=== PATIENT | female | born 1980 | race Caucasian/White ===

== ENCOUNTER 2017-04-26 11:31 | Emergency (ER) | payer SELFPAY ==
[2017-04-26 11:35] VITALS: BP 104/62; PULSE 87; TEMP 99.1; BMI 27.8
[2017-04-26] MEDS ORDERED: KETOROLAC TROMETHAMINE 60 MG/2 ML VIAL IM ONE (12:16)
--- NOTE | 2017-04-26 12:18 | PDOC ---
History of Present Illness - General Chief Complaint: Back Pain Stated Complaint: LT SIDE PAIN Time Seen by Provider: 04/26/17 11:45 - History of Present Illness Initial Comments: 04/26/17 12:17 CHIEF COMPLAINT: L lower back pain HISTORY OF PRESENT ILLNESS: 37 yo F with hx of "palpitations" presents to [facility] with L lower back pain since yesterday. Patient denies any recent trauma or injury, denies any heavy lifting or exercise. Patient does report that "my often lowers the air conditioning down so low at night, and I hate it, and sometimes I wake up and my joints are hurting." Patient denies any loss of sensation to her lower extremities, any loss of bowel or bladder function, or pain to her legs. PAST MEDICAL HISTORY: "palpitations" FAMILY HISTORY: Denies SOCIAL HISTORY:Denies tobacco, alcohol, illicit drug use. SURGICAL HISTORY: Denies ALLERGIES: No known drug allergies REVIEW OF SYSTEMS General/Constitutional: Denies fever or chills. Denies weakness, weight change. HEENT: Denies change in vision. Denies ear pain or discharge. Denies sore throat. Cardiovascular: Denies chest pain or shortness of breath. Respiratory: Denies cough, wheezing, or hemoptysis. Gastrointestinal: Denies nausea, vomiting, diarrhea or constipation. Denies rectal bleeding. Genitourinary: Denies dysuria, frequency, or change in urination. Musculoskeletal: Left lower back pain x 1 day. Denies joint or muscle swelling or pain. Skin: Denies rash or easy bruising. Neurologic: Denies headache, vertigo, loss of consciousness, or loss of sensation. PHYSICAL EXAM General Appearance: Well-appearing, appropriately dressed. No apparent distress , no intoxication. HEENT: EOMI, PERRLA, normal ENT inspection, normal voice, TMs normal, pharynx normal. No conjunctival pallor. No photophobia, scleral icterus. Neck: Supple. No midline tenderness to cervical spine. Respiratory/Chest: Lungs CTAB. Cardiovascular: RRR. S1, S2. Musculoskeletal/Extremities: Palpable muscle spasms to L lower latissimus dorsi. Sensory discrimination intact to LE b/l. No midline tenderness to thoracic or lumbar spine. Normal inspection. FROM of all extremities, normal capillary refill. Pelvis Stable. No CVA tenderness. No tenderness to extremities, pedal edema, swelling, erythema or deformity. Integumentary: Appropriate color, dry, warm. No cyanosis, erythema, jaundice or rash Neurologic: contract runner II-XII intact. Fully oriented, alert. Appropriate mood/affect. Motor strength 5/5. No appreciable EOM palsy, facial droop or sensory deficit. Past History - Past Medical History Allergies/Adverse Reactions: Allergies Allergy/AdvReac Type Severity Reaction Status Date / Time No Known Allergies Allergy Verified 04/26/17 11:35 Home Medications: Ambulatory Orders Cyclobenzaprine HCl 7.5 mg PO HS PRN #5 tablet 04/26/17 Naproxen [Naprosyn -] 250 mg PO BID #14 tablet 04/26/17 Cardiac Disorders: Yes (H/O PALPITATIONS) GI Disorders: Yes (H/O CONSTIPATION) - Immunization History Immunization Up to Date: Yes - Psycho/Social/Smoking Cessation Hx Anxiety: No Suicidal Ideation: No Smoking Status: No Smoking History: Never smoked Have you smoked in the past 12 months: No Number of Cigarettes Smoked Daily: 0 Hx Alcohol Use: No Drug/Substance Use Hx: No Substance Use Type: None *Physical Exam - Vital Signs Last Vital Signs Temp Pulse Resp BP Pulse Ox 99.1 F 87 18 104/62 99 04/26/17 11:32 04/26/17 11:32 04/26/17 11:32 04/26/17 11:32 04/26/17 11:32 Medical Decision Making - Medical Decision Making 04/26/17 12:37 37 yo F with hx of "palpitations" presents to [facility] with L lower back pain since yesterday. -60 mg Toradol Rx for cyclobenzaprine and naproxen sent to pharm. Advised patient to f/u with orthopedics for further evaluation of back pain and possible PT if symptoms persist past 3-4 days. Advised patient of signs and symptoms for return to ER; patient verbalized understanding and agrees to plan. *DC/Admit/Observation/Transfer Diagnosis at time of Disposition: Muscle spasm - Discharge Dispostion Disposition: HOME Condition at time of disposition: Stable Admit: No - Prescriptions Prescriptions: Cyclobenzaprine HCl 7.5 mg PO HS PRN #5 tablet PRN Reason: Back Pain Naproxen [Naprosyn -] 250 mg PO BID #14 tablet - Referrals Referrals: Clara Melara MD [Primary Care Provider] - Priyank Del Cid MD [Staff Physician] - - Patient Instructions Printed Discharge Instructions: DI for Low Back Pain, DI for Back Spasm Additional Instructions: Please take medications as prescribed. Do not drive or operate machinery while taking cyclobenzaprine. Please follow up with orthopedics for further evaluation if your back pain persists past 3-4 days. If you experience ANY loss of sensation; loss of bowel or bladder function; or numbness, tingling, or shooting sensations in your legs, please return to the ER.
[2017-04-26] MEDS ORDERED: KETOROLAC TROMETHAMINE 60 MG/2 ML VIAL ONE (12:27)
== END 2017-04-26 13:09 | disposition home or self-care (01) ==
LOC: JERFT 11:31
PROC: 3E0233Z Introduction of Anti-inflammatory into Muscle, Percutaneous Approach (ICD-10-PCS; principal; 2017-04-26)
DX: M54.5 Low back pain (principal); M62.830 Muscle spasm of back
CPT/HCPCS: 99281-25

== ENCOUNTER 2017-06-16 00:02 | Emergency (ER) | payer OTHER ==
[2017-06-16] MEDS ORDERED: FAMOTIDINE 20 MG/50 ML IVPB 20 MG in PREMIX 50 IVPB ONE (00:10)
[2017-06-16] MEDS ORDERED: SODIUM CHLORIDE 1,000 ML IV STA (00:10)
[2017-06-16] MEDS ORDERED: methylPREDNISolone NA SUCC 125 MG/2 ML VIAL ONE ×2 (00:10→00:11)
[2017-06-16] MEDS ORDERED: methylPREDNISolone NA SUCC 125 MG/2 ML VIAL IVPB ONE (00:10)
--- NOTE | 2017-06-16 00:10 | PDOC ---
History of Present Illness - General Exam Limitations: No Limitations - History of Present Illness Initial Comments: 06/16/17 00:12 The patient is a 37 year old female with history of seafood allergies who presents to the ED complaining of shortness of breath and diffuse rash that began approximately 30 minutes prior to ED arrival. The patient reports she ate shrimp just prior to the onset of her symptoms. She subsequently developed her diffuse rash with associated itching sensation and became progressively short of breath. She promptly came to the ED for evaluation. She denies taking any medications for her symptoms prior to arrival. She does admit to associated palpitations. The patient denies cough or wheezing. She denies hemoptysis. She denies fever or chills. She denies any chest pain or peripheral edema. No facial swelling. Patient was seen by me immediately upon arrival. <Sherine Tam - Last Filed: 06/16/17 00:50> - General History Source: Patient <Gerardo Avendano - Last Filed: 06/16/17 02:12> - General Stated Complaint: ALLERGIC REACTION Time Seen by Provider: 06/16/17 00:08 Past History <Sherine Tam - Last Filed: 06/16/17 00:50> - Past Medical History Cardiac Disorders: Yes (H/O PALPITATIONS) GI Disorders: Yes (H/O CONSTIPATION) - Immunization History Immunization Up to Date: Yes - Psycho/Social/Smoking Cessation Hx Anxiety: No Suicidal Ideation: No Smoking Status: No Smoking History: Never smoked Have you smoked in the past 12 months: No Number of Cigarettes Smoked Daily: 0 Hx Alcohol Use: No Drug/Substance Use Hx: No Substance Use Type: None <Gerardo Avendano - Last Filed: 06/16/17 02:12> - Past Medical History Allergies/Adverse Reactions: Allergies Allergy/AdvReac Type Severity Reaction Status Date / Time No Known Allergies Allergy Verified 06/16/17 00:26 Home Medications: Ambulatory Orders Cyclobenzaprine HCl 7.5 mg PO HS PRN #5 tablet 04/26/17 Naproxen [Naprosyn -] 250 mg PO BID #14 tablet 04/26/17 Diphenhydramine HCl [Benadryl Capsules -] 25 mg PO TID #20 capsule 06/16/17 Loratadine [Claritin] 10 mg PO DAILY #30 tablet 06/16/17 Methylprednisolone [Medrol Dose Hiram] 4 mg PO ASDIR #21 tablet 06/16/17 Review of Systems - Review of Systems Able to Perform ROS?: Yes Comments:: 06/16/17 00:15 GENERAL/CONSTITUTIONAL: No fever or chills. No weakness. HEAD, EYES, EARS, NOSE AND THROAT: No change in vision. No ear pain or discharge. No sore throat. No facial swelling. CARDIOVASCULAR: +Palpitations. No chest pain or peripheral edema. RESPIRATORY: +Shortness of breath. No cough or hemoptysis. GASTROINTESTINAL: No nausea, vomiting, diarrhea or constipation. GENITOURINARY: No dysuria, frequency, or change in urination. MUSCULOSKELETAL: No joint or muscle swelling or pain. No neck or back pain. SKIN: +Diffuse rash, itching sensation. NEUROLOGIC: No headache, vertigo, loss of consciousness, or change in strength/ sensation. ENDOCRINE: No increased thirst. No abnormal weight change. HEMATOLOGIC/LYMPHATIC: No anemia, easy bleeding, or history of blood clots. ALLERGIC/IMMUNOLOGIC: No hives or skin allergy. <Sherine Tam - Last Filed: 06/16/17 00:50> *Physical Exam - Physical Exam Comments: 06/16/17 00:17 GENERAL: Awake, alert, and fully oriented. In respiratory distress. HEAD: No signs of trauma EYES: PERRLA, EOMI, sclera anicteric, conjunctiva clear. No periorbital edema. ENT: Auricles normal inspection, hearing grossly normal, nares patent, oropharynx clear without exudates. Moist mucosa. Airway patent, no stridor. NECK: Normal ROM, supple, no lymphadenopathy, JVD, or masses LUNGS: Diminished breath sounds bilaterally. No wheezes, and no crackles HEART: +tachycardic rate, normal S1 and S2, no murmurs, rubs or gallops ABDOMEN: Soft, nontender, normoactive bowel sounds. No guarding, no rebound. No masses EXTREMITIES: Normal range of motion, no edema. No clubbing or cyanosis. No cords, erythema, or tenderness NEUROLOGICAL: Cranial nerves II through XII grossly intact. Normal speech, normal gait SKIN: Warm, Dry, normal turgor. Diffuse urticaria throughout.l <Sherine Tam - Last Filed: 06/16/17 00:50> Medical Decision Making - Medical Decision Making 06/16/17 02:11 Dr. Avendano: The scribe's documentation has been prepared under my direction and personally reviewed by me in its entirery. I confirm that the note above accurately reflects all work, treatment, procedures, and medical decision making performed by me. <Gerardo Avendano - Last Filed: 06/16/17 02:12> *DC/Admit/Observation/Transfer - Attestations Scribe Attestion: 06/16/17 00:19 Documentation prepared by Sherine Tam, acting as medical coding technician for Gerardo Avendano DO. <Sherine Tam - Last Filed: 06/16/17 00:50> - Discharge Dispostion Admit: No <Gerardo Avendano - Last Filed: 06/16/17 02:12> Diagnosis at time of Disposition: Allergic reaction - Discharge Dispostion Disposition: HOME Condition at time of disposition: Stable - Prescriptions Prescriptions: Diphenhydramine HCl [Benadryl Capsules -] 25 mg PO TID #20 capsule Loratadine [Claritin] 10 mg PO DAILY #30 tablet Methylprednisolone [Medrol Dose Hiram] 4 mg PO ASDIR #21 tablet - Referrals Referrals: Clara Melara MD [Primary Care Provider] - - Patient Instructions Printed Discharge Instructions: DI for General Allergic Reactions
[2017-06-16] MEDS ORDERED: FAMOTIDINE 20 MG/50 ML IVPB 50 ML IVPB ONE (00:11)
[2017-06-16] MEDS ORDERED: ALBUTEROL SO4 2.5/IPRATROPIUM 0.5 INH SOL 3 ML VIAL.NEB. NEB STA (00:12)
[2017-06-16 00:29] VITALS: BP 112/52; TEMP 98.6; BMI 29.2
[2017-06-16] MEDS ORDERED: diphenhydrAMINE HCL 25 MG CAPSULE (FP) PO ONE ×2 (02:12→02:16)
[2017-06-16 02:21] VITALS: PULSE 82
== END 2017-06-16 02:21 | disposition home or self-care (01) ==
LOC: JER 00:02
PROC: 3E0333Z Introduction of Anti-inflammatory into Peripheral Vein, Percutaneous Approach (ICD-10-PCS; principal; 2017-06-16)
PROC: 3E0337Z Introduction of Electrolytic and Water Balance Substance into Peripheral Vein, Percutaneous Approach (ICD-10-PCS; 2017-06-16)
PROC: 3E033GC Introduction of Other Therapeutic Substance into Peripheral Vein, Percutaneous Approach (ICD-10-PCS; 2017-06-16)
DX: T78.1XXA Other adverse food reactions, not elsewhere classified, initial encounter (principal); X58.XXXA Exposure to other specified factors, initial encounter; Z91.013 Allergy to seafood
CPT/HCPCS: 99282-25

== ENCOUNTER 2017-08-29 11:26 | Emergency (ER) | payer OTHER ==
[2017-08-29 11:44] VITALS: TEMP 98; BMI 28.0
--- NOTE | 2017-08-29 12:30 | PDOC ---
History of Present Illness - General Chief Complaint: Chest Pain Stated Complaint: DIZZY WEAKNESS Time Seen by Provider: 08/29/17 11:43 History Source: Patient - History of Present Illness Timing/Duration: resolved prior to arrival, other (this am) Associated Symptoms: reports: chest pain. denies: fever/chills, nausea/vomiting , shortness of breath Past History - Past Medical History Allergies/Adverse Reactions: Allergies Allergy/AdvReac Type Severity Reaction Status Date / Time No Known Allergies Allergy Verified 06/16/17 00:26 Home Medications: Ambulatory Orders Cyclobenzaprine HCl 7.5 mg PO HS PRN #5 tablet 04/26/17 Naproxen [Naprosyn -] 250 mg PO BID #14 tablet 04/26/17 Diphenhydramine HCl [Benadryl Capsules -] 25 mg PO TID #20 capsule 06/16/17 Loratadine [Claritin] 10 mg PO DAILY #30 tablet 06/16/17 Methylprednisolone [Medrol Dose Hiram] 4 mg PO ASDIR #21 tablet 06/16/17 Cardiac Disorders: Yes (H/O PALPITATIONS) COPD: No GI Disorders: Yes (H/O CONSTIPATION) - Immunization History Immunization Up to Date: Yes - Suicide/Smoking/Psychosocial Hx Smoking Status: No Smoking History: Never smoked Have you smoked in the past 12 months: No Number of Cigarettes Smoked Daily: 0 Hx Alcohol Use: No Drug/Substance Use Hx: No Substance Use Type: None Review of Systems - Review of Systems Constitutional: No: Chills, Fever Respiratory: No: Shortness of Breath Cardiac (ROS): Yes: Chest Pain, Palpitations. No: Lightheadedness ABD/GI: No: Nausea, Vomiting Neurological: No: Headache *Physical Exam - Vital Signs Last Vital Signs Temp Pulse Resp BP Pulse Ox 98 F 72 16 105/70 100 08/29/17 11:41 08/29/17 11:41 08/29/17 11:41 08/29/17 11:41 08/29/17 11:41 - Physical Exam General Appearance: Yes: Appropriately Dressed. No: Apparent Distress HEENT: positive: Normal Voice Neck: positive: Supple Respiratory/Chest: positive: Lungs Clear, Normal Breath Sounds. negative: Respiratory Distress Cardiovascular: positive: Regular Rate, S1, S2 Gastrointestinal/Abdominal: positive: Soft. negative: Tender Integumentary: positive: Dry, Warm Neurologic: positive: Fully Oriented, Alert, Normal Mood/Affect ED Treatment Course - RADIOLOGY Radiology Studies Ordered: Category Date Time Status CHEST - PA [RAD] Stat Radiology 08/29/17 11:51 Taken Medical Decision Making - Medical Decision Making 08/29/17 12:30 37-year-old female, endorses history of intermittent palpitations since the age of 12 with no clear etiology on workup including stress test, echo, holter monitoring , labs including TSH per patient, here with similar symptoms. Patient states while at work this a.m. developed palpitations with chest pain and dizziness similar to previous episodes. States symptoms have since resolved. Patient reports she was not going to come to ED was told by her boss that she "had to". Patient well-appearing and stable in ED with unremarkable EKG as reviewed with ED attending. No further intervention warranted in ED. Stable for discharge to follow up with PMD and perennial house manager. 08/29/17 12:34 *DC/Admit/Observation/Transfer Diagnosis at time of Disposition: Palpitations - Discharge Dispostion Disposition: HOME Condition at time of disposition: Improved - Patient Instructions Printed Discharge Instructions: DI for Palpitations Additional Instructions: The cause of your chronic palpitations are unclear especially given negative workup in the past. Please continue to follow up with your PMD and your perennial house manager
[2017-08-29 12:41] VITALS: BP 108/56; PULSE 68
--- NOTE | 2017-08-30 11:58 | EKG ---
Test Reason : Blood Pressure : / mmHG Vent. Rate : 066 BPM Atrial Rate : 066 BPM P-R Int : 146 ms QRS Dur : 070 ms QT Int : 400 ms P-R-T Axes : 019 057 037 degrees QTc Int : 419 ms NORMAL SINUS RHYTHM NORMAL ECG NO PREVIOUS ECGS AVAILABLE Confirmed by KARLY CHRISTIANSON, YEIMI ([id number]) on 08/30/2017 11:58:15 AM Referred By: Confirmed By:YEIMI BRANDT MD
== END 2017-08-29 12:41 | disposition home or self-care (01) ==
LOC: JER 11:26
DX: R00.2 Palpitations (principal)
CPT/HCPCS: 71010-TC; 93005; 93010; 99283-25

== ENCOUNTER 2017-10-15 23:15 | Emergency (ER) | payer OTHER ==
[2017-10-15 23:51] VITALS: BP 105/58; PULSE 84; TEMP 99.6; BMI 27.3
[2017-10-16] MEDS ORDERED: SODIUM CHLORIDE 1,000 ML IV STA (00:09)
--- NOTE | 2017-10-16 00:09 | PDOC ---
History of Present Illness - General History Source: Patient, Old Records Exam Limitations: No Limitations - History of Present Illness Initial Comments: 10/16/17 01:12 The patient is a 37 year old female presenting with her , with a significant past medical history of palpitations and constipation, who presents to the emergency department with abdominal pain, cough nausea, vomit and diarrhea for the past week. She describes her abdominal pain as diffused but mostly localized on the epigastric region, without radiation or modifying factors. She describes her diarrhea as watery and nonbloody in nature. She notes that shes had roughly 15 diarrhea episodes today. She describes her vomit and nonbilious and nonbloody. She notes that her cough is dry in nature. She reports that her child was recently sick at home. She denies any recent travel. The patient denies chest pain, shortness of breath, headache and dizziness. Denies fever, chills and constipation. Denies dysuria, frequency, urgency and hematuria. Allergies: shrimp Past surgical history: Ectopic (x2), partial hysterectomy ( Endometriosis) Social history: No alcohol, tobacco or drug use reported PMD: Dr. Clara Carroll <Gerardo Shearer - Last Filed: 10/16/17 01:12> <Hailey Horn - Last Filed: 10/16/17 02:49> <Kaitlynn Gamble - Last Filed: 10/16/17 04:31> - General Chief Complaint: Pain Stated Complaint: PAIN Time Seen by Provider: 10/16/17 00:01 Past History <Gerardo Shearer - Last Filed: 10/16/17 01:12> - Past Medical History Cardiac Disorders: Yes (H/O PALPITATIONS) COPD: No GI Disorders: Yes (H/O CONSTIPATION) - Immunization History Immunization Up to Date: Yes - Suicide/Smoking/Psychosocial Hx Smoking Status: No Smoking History: Never smoked Have you smoked in the past 12 months: No Number of Cigarettes Smoked Daily: 0 Information on smoking cessation initiated: No Hx Alcohol Use: No Drug/Substance Use Hx: No Substance Use Type: None <Hailey Horn - Last Filed: 10/16/17 02:49> <Kaitlynn Gamble - Last Filed: 10/16/17 04:31> - Past Medical History Allergies/Adverse Reactions: Allergies Allergy/AdvReac Type Severity Reaction Status Date / Time shrimp Allergy Severe Difficulty Verified 10/15/17 23:44 Breathing No Known Drug Allergies Allergy Verified 10/15/17 23:44 Home Medications: Ambulatory Orders NK [No Known Home Medication] 08/29/17 Review of Systems - Review of Systems Able to Perform ROS?: Yes Comments:: 10/16/17 01:13 GENERAL/CONSTITUTIONAL: No fever or chills. No weakness. HEAD, EYES, EARS, NOSE AND THROAT: No change in vision. No ear pain or discharge. No sore throat.- CARDIOVASCULAR: No chest pain or shortness of breath RESPIRATORY: (+) Cough. No wheezing, or hemoptysis. GASTROINTESTINAL: (+) Abdominal pain, nausea, vomiting, diarrhea. No constipation. GENITOURINARY: No dysuria, frequency, or change in urination. MUSCULOSKELETAL: No joint or muscle swelling or pain. No neck or back pain. SKIN: No rash NEUROLOGIC: No headache, vertigo, loss of consciousness, or change in strength/ sensation. ENDOCRINE: No increased thirst. No abnormal weight change HEMATOLOGIC/LYMPHATIC: No anemia, easy bleeding, or history of blood clots. ALLERGIC/IMMUNOLOGIC: No hives or skin allergy. <Gerardo Shearer - Last Filed: 10/16/17 01:12> *Physical Exam - Vital Signs Last Vital Signs Temp Pulse Resp BP Pulse Ox 99.6 F 84 20 105/58 100 10/15/17 23:49 10/15/17 23:49 10/15/17 23:49 10/15/17 23:49 10/15/17 23:49 - Physical Exam Comments: 10/16/17 01:13 GENERAL: Awake, alert, and fully oriented, in no acute distress HEAD: No signs of trauma, normocephalic, atraumatic EYES: PERRLA, EOMI, sclera anicteric, conjunctiva clear ENT: Auricles normal inspection, hearing grossly normal, nares patent, oropharynx clear without exudates. Moist mucosa NECK: Normal ROM, supple, no lymphadenopathy, JVD, or masses LUNGS: No distress, speaks full sentences, clear to auscultation bilaterally HEART: Regular rate and rhythm, normal S1 and S2, no murmurs, rubs or gallops, peripheral pulses normal and equal bilaterally. ABDOMEN: Soft, nontender, normoactive bowel sounds. No guarding, no rebound. No masses EXTREMITIES : Normal inspection, Normal range of motion, no edema. No clubbing or cyanosis. NEUROLOGICAL: Cranial nerves II through XII grossly intact. Normal speech, normal gait, no focal sensorimotor deficits SKIN: Warm, Dry, normal turgor, no rashes or lesions noted. <Gerardo Shearer - Last Filed: 10/16/17 01:12> - Vital Signs Last Vital Signs Temp Pulse Resp BP Pulse Ox 99.6 F 84 20 105/58 100 10/15/17 23:49 10/15/17 23:49 10/15/17 23:49 10/15/17 23:49 10/15/17 23:49 <Hailey Horn - Last Filed: 10/16/17 02:49> - Vital Signs Last Vital Signs Temp Pulse Resp BP Pulse Ox 99.6 F 84 20 105/58 100 10/15/17 23:49 10/15/17 23:49 10/15/17 23:49 10/15/17 23:49 10/15/17 23:49 <Kaitlynn Gamble - Last Filed: 10/16/17 04:31> ED Treatment Course - LABORATORY CBC & Chemistry Diagram: 10/16/17 00:35 10/16/17 00:35 - ADDITIONAL ORDERS Additional order review: Laboratory Results 10/16/17 00:35 Serum , Qual Negative - Medications Given in the ED: ED Medications Discontinued Medications Generic Name Dose Route Start Last Admin Trade Name Freq PRN Reason Stop Dose Admin Sodium Chloride 1,000 mls @ 1,000 mls/hr 10/16/17 00:09 10/16/17 00:37 Normal Saline - IV 10/16/17 01:08 1,000 mls/hr ASDIR STA Administration <Gerardo Shearer - Last Filed: 10/16/17 01:12> - LABORATORY CBC & Chemistry Diagram: 10/16/17 00:35 10/16/17 00:35 <Hailey Horn - Last Filed: 10/16/17 02:49> - LABORATORY CBC & Chemistry Diagram: 10/16/17 00:35 10/16/17 00:35 - ADDITIONAL ORDERS Additional order review: Laboratory Results 10/16/17 10/16/17 10/16/17 00:37 00:35 00:35 Sodium 141 Potassium 3.2 L Chloride 105 Carbon Dioxide 27 Anion Gap 9 BUN 12 D Creatinine 0.9 Creat Clearance w eGFR > 60 Random Glucose 86 Calcium 8.7 Total Bilirubin 0.7 D AST 226 H D ALT 150 H D Alkaline Phosphatase 83 D Total Protein 7.3 Albumin 3.9 Lipase 125 Serum , Qual Negative Urine Color Yellow Urine Appearance Clear Urine pH 5.0 Ur Specific [place] 1.023 Urine Protein Negative Urine Glucose (UA) Negative Urine Ketones Negative Urine Blood 1+ H Urine Nitrite Negative Urine Bilirubin Negative Urine Urobilinogen Negative Urine WBC (Auto) 2 Urine RBC (Auto) 7 Ur Epithelial Cells Rare Urine Mucus Rare 10/16/17 00:35 RBC 4.16 MCV 97.2 H MCHC 33.7 RDW 13.4 D MPV 8.1 Neutrophils % 84.6 H D Lymphocytes % 10.3 D Monocytes % 3.7 L Eosinophils % 1.1 Basophils % 0.3 - RADIOLOGY Radiology Studies Ordered: Category Date Time Status ABDOMEN & PELVIS CT W/O CONTR [CT] Stat CT Scan 10/16/17 03:19 Taken - Medications Given in the ED: ED Medications Discontinued Medications Generic Name Dose Route Start Last Admin Trade Name Freq PRN Reason Stop Dose Admin Al Hydroxide/Mg Hydroxide 30 ml 10/16/17 00:52 10/16/17 01:21 Mylanta Oral Suspension - PO 10/16/17 00:53 30 ml ONCE ONE Administration Sodium Chloride 1,000 mls @ 1,000 mls/hr 10/16/17 00:09 10/16/17 00:37 Normal Saline - IV 10/16/17 01:08 1,000 mls/hr ASDIR STA Administration Potassium Chloride 40 meq 10/16/17 02:40 10/16/17 03:59 K-Dur - PO 10/16/17 02:41 40 meq ONCE ONE Administration <Kaitlynn Gamble - Last Filed: 10/16/17 04:31> Medical Decision Making - Medical Decision Making 10/16/17 02:49 37-year-old female who started with some L last Monday with nausea and vomiting. States that she has had multiple episodes of diarrhea. Stating that she's had after almost 15 loose stools today. She complains of epigastric pain and she does have some mild elevation in her LFTs. Ultrasound does not show any evidence of cholecystitis Patient doesn't have a mild leukocytosis and shift. CAT scan to evaluate for colitis. Also, reviewing her labs, she has hypokalemia. will supplement with kdur <Hailey Horn - Last Filed: 10/16/17 02:49> - Medical Decision Making Pt signed out to me stable and improved. Simply waiting for CT to r/o colitis: 10/16/17 04:29 Patient Name: ARTURO RUIZ THIS IS A PRELIMINARY REPORT FROM [facility] DATE OF SERVICE: 2017-10-16 03:20:58 IMAGES: [id number] EXAM: CT ABDOMEN AND PELVIS WITHOUT CONTRAST No nephrolithiasis, ureterolithiasis or obstructive uropathy. No bladder calculi. Unremarkable pancreas and gallbladder. No bowel obstruction, colitis, or free air. Normal appendix. Small physiologic free fluid cul-de-sac. THIS DOCUMENT HAS BEEN ELECTRONICALLY SIGNED 10/16/17 04:29 Pt is now ready to go home. <Kaitlynn Gamble - Last Filed: 10/16/17 04:31> *DC/Admit/Observation/Transfer - Attestations Scribe Attestion: 10/16/17 01:13 Documentation prepared by Gerardo Shearer, acting as medical file clerk for Hailey Horn MD <Gerardo Shearer - Last Filed: 10/16/17 01:12> <Hailey Horn - Last Filed: 10/16/17 02:49> - Discharge Dispostion Admit: No <Kaitlynn Gamble - Last Filed: 10/16/17 04:31> Diagnosis at time of Disposition: Vomiting - Discharge Dispostion Disposition: HOME Condition at time of disposition: Stable - Referrals Referrals: Clara Melara MD [Primary Care Provider] - - Patient Instructions Printed Discharge Instructions: DI for Vomiting -- Adult
[2017-10-16 00:52] LABS: BASOPHIL 0.3 % (0-2.0); EOSINOPHIL 1.1 % (0-4.5); MCH 32.7 pg (25.7-33.7); MCHC 33.7 g/dl (32.0-36.0); MEAN CELL VOLUME 97.2 fl (80-96); MEAN PLT VOLUME 8.1 fl (7.5-11.1); NEUTROPHILS 84.6 % (42.8-82.8); PLATELET COUNT 224 K/MM3 (134-434); RDW 13.4 % (11.6-15.6); WHITE BLOOD COUNT 11.1 K/mm3 (4.0-10.0)
[2017-10-16] MEDS ORDERED: MAG HYDROX/AL HYDROX/SIMETH 30 ML UNIT-DOSE CUP PO ONE (00:52)
[2017-10-16] MEDS ORDERED: MAG HYDROX/AL HYDROX/SIMETH 30 ML UNIT-DOSE CUP ONE (01:11)
[2017-10-16 01:13] LABS: URINE APPEARANCE CLEAR; URINE BILIRUBIN NEGATIVE (NEGATIVE); URINE BLOOD 1+ (NEGATIVE); URINE COLOR YELLOW; URINE GLUCOSE (UA) NEGATIVE (NEGATIVE); URINE KETONE NEGATIVE (NEGATIVE); URINE LEUK ESTERASE NEGATIVE (NEGATIVE); URINE NITRITE NEGATIVE (NEGATIVE); URINE PROTEIN NEGATIVE (NEGATIVE); URINE UROBILINOGEN NEGATIVE mg/dL (0.2-1.0)
[2017-10-16 01:21] LABS: ALBUMIN 3.9 g/dl (3.4-5.0); ALK PHOS 83 U/L (45-117); ANION GAP 9 (8-16); BILIRUBIN,TOTAL 0.7 mg/dL (0.2-1.0); CALCIUM 8.7 mg/dL (8.5-10.1); CO2 27 mmol/L (21-32); CREATININE 0.9 mg/dL (0.55-1.02); GLUCOSE,RANDOM 86 mg/dL (74-106); SGOT/AST 226 U/L (15-37); SGPT/ALT 150 U/L (12-78); TOT PROT 7.3 g/dl (6.4-8.2)
[2017-10-16 01:29] LABS: URINE MUCUS RARE; URINE RBC 7 /hpf (0-3); URINE WBC 2 /hpf (3-5)
[2017-10-16] MEDS ORDERED: POTASSIUM CHLORIDE TABS 20 MEQ TABLET.ER (FP) PO ONE ×2 (02:40→04:01)
[2017-10-16 17:15] LABS: URINE LEUK ESTERASE Negative (NEGATIVE)
== END 2017-10-16 04:45 | disposition home or self-care (01) ==
LOC: JER 23:15
PROC: 3E0337Z Introduction of Electrolytic and Water Balance Substance into Peripheral Vein, Percutaneous Approach (ICD-10-PCS; principal; 2017-10-15)
DX: R11.10 Vomiting, unspecified (principal); R00.2 Palpitations
CPT/HCPCS: 36415; 74176-TC; 76705-TC; 80053; 81003; 81015; 83690; 84703; 85025; 99281-25

== ENCOUNTER 2017-10-26 14:20 | Emergency (ER) | payer OTHER ==
--- NOTE | 2017-10-26 14:38 | PDOC ---
Rapid Medical Evaluation Time Seen by Provider: 10/26/17 14:37 Medical Evaluation: Allergies Allergy/AdvReac Type Severity Reaction Status Date / Time shrimp Allergy Severe Difficulty Verified 10/15/17 23:44 Breathing No Known Drug Allergies Allergy Verified 10/15/17 23:44 10/26/17 14:38 The patient presents with a chief complaint of: Fevers, bodyaches, cough for one day. Took Motrin at 12pm I have performed a brief in-person evaluation of this patient; Pertinent physical exam findings CTAB, rrr. Temp 100.3 F I have ordered the following: Tylenol The patient will proceed to the ED for further evaluation.
[2017-10-26] MEDS ORDERED: ACETAMINOPHEN 325 MG TABLET (FP) PO ONE (14:47)
[2017-10-26 14:51] VITALS: BP 114/65; PULSE 101; TEMP 100.3; BMI 27.3
[2017-10-26] MEDS ORDERED: ACETAMINOPHEN 325 MG TABLET (FP) ONE (15:11)
--- NOTE | 2017-10-26 15:40 | PDOC ---
History of Present Illness - General Chief Complaint: Cold Symptoms Stated Complaint: COLD Time Seen by Provider: 10/26/17 14:37 History Source: Patient Exam Limitations: No Limitations - History of Present Illness Initial Comments: 10/26/17 15:35 37yo Female patient w/ PmHx: Heart Palpitations, Endometriosis, Hysterectomy presents to ED c/o fever, body aches, throat pain, headache since Monday. Patient reports symptoms as constant and not better with OTC medications use. Patient denies any other complaints at this time. Timing/Duration: reports: constant. denies: just prior to arrival, other, changing over time, getting worse, gone now, intermittent, week, yesterday, this afternoon, this evening, this morning Severity: reports: moderate. denies: mild, severe Episode Description: See HPI Possible Cause: Yes: no prior episodes. No: other, allergen exposure, chronic episodes, frequent episodes, illness exposure, irritant gases exposure, occasional episodes, smoke exposure, unknown cause Modifying Factors: improves with: coughing. worse with: activity, albuterol inhaler, albuterol nebulizer, antibiotics, lying down, oxygen, rest, other Associated Symptoms: reports: cough, fever/chills, headache, nasal congestion, sore throat Past History - Travel Traveled outside of the country in the last 30 days: No Close contact w/someone who was outside of country & ill: No - Past Medical History Allergies/Adverse Reactions: Allergies Allergy/AdvReac Type Severity Reaction Status Date / Time shrimp Allergy Severe Difficulty Verified 10/15/17 23:44 Breathing No Known Drug Allergies Allergy Verified 10/15/17 23:44 Home Medications: Ambulatory Orders Ibuprofen 600 mg PO Q6H PRN #20 tablet 10/26/17 Oseltamivir Phosphate [Tamiflu -] 75 mg PO BID #10 capsule 10/26/17 Cardiac Disorders: Yes (H/O PALPITATIONS) COPD: No GI Disorders: Yes (H/O CONSTIPATION) - Immunization History Immunization Up to Date: Yes - Suicide/Smoking/Psychosocial Hx Smoking Status: No Smoking History: Never smoked Have you smoked in the past 12 months: No Number of Cigarettes Smoked Daily: 0 Hx Alcohol Use: No Drug/Substance Use Hx: No Substance Use Type: None Respiratory Specific PMHX - Complaint Specific PMHX Angina: No Bronchitis: No Pneumonia: No Pulmonary Embolus: No TB (Tuberculosis): No Review of Systems - Review of Systems Able to Perform ROS?: Yes Is the patient limited Chinese proficient: No Constitutional: Yes: Chills, Fever, Malaise HEENTM: Yes: Nose Congestion, Throat Pain Musculoskeletal: Yes: Other (Body Aches) Neurological: Yes: Headache All Other Systems: Reviewed and Negative *Physical Exam - Vital Signs Last Vital Signs Temp Pulse Resp BP Pulse Ox 100.3 F H 101 H 20 114/65 100 10/26/17 14:49 10/26/17 14:49 10/26/17 14:49 10/26/17 14:49 10/26/17 14:49 - Physical Exam General Appearance: Yes: Nourished, Appropriately Dressed. No: Apparent Distress, Mild Distress, Moderate Distress, Severe Distress HEENT: positive: EOMI, MARC, Normal ENT Inspection, Normal Voice, Symmetrical, TMs Normal, Pharynx Normal, Sinus Tenderness. negative: Pharyngeal Erythema, Tonsillar Exudate, Tonsillar Erythema, Nasal Congestion, Rhinorrhea, TM Bulging , TM Dull, TM Erythema Neck: positive: Trachea midline, Normal Thyroid, Supple. negative: Rigid, Stridor, Lymphadenopathy (R), Lymphadenopathy (L), Tender lateral, Tender midline Respiratory/Chest: positive: Lungs Clear, Normal Breath Sounds. negative: Chest Tender, Respiratory Distress, Accessory Muscle Use, Labored Respiration, Rapid RR, Rhonchi, Stridor, Wheezing Cardiovascular: positive: Regular Rhythm, Regular Rate Musculoskeletal: positive: Normal Inspection. negative: CVA Tenderness, Decreased Range of Motion, Vertebral Tenderness Extremity: positive: Normal Capillary Refill, Normal Inspection, Normal Range of Motion. negative: Pedal Edema, Swelling, Calf Tenderness, Erythema, Inflammation Integumentary: positive: Normal Color, Dry, Warm Neurologic: positive: transport tech II-XII NML intact, Fully Oriented, Alert, Normal Mood/ Affect, Normal Response, Motor Strength 5/5 ED Treatment Course - Medications Given in the ED: ED Medications Discontinued Medications Generic Name Dose Route Start Last Admin Trade Name Freq PRN Reason Stop Dose Admin Acetaminophen 650 mg 10/26/17 14:47 10/26/17 15:12 Tylenol - PO 10/26/17 14:48 650 mg ONCE ONE Administration *DC/Admit/Observation/Transfer Diagnosis at time of Disposition: Influenza B - Discharge Dispostion Disposition: HOME Condition at time of disposition: Stable Admit: No - Prescriptions Prescriptions: Ibuprofen 600 mg PO Q6H PRN #20 tablet PRN Reason: Pain Or Fever Oseltamivir Phosphate [Tamiflu -] 75 mg PO BID #10 capsule - Referrals Referrals: Clara Melara MD [Primary Care Provider] - - Patient Instructions Printed Discharge Instructions: DI for Influenza -- Adult Additional Instructions: Follow up with Dr. Melara for further evaluation in 3 days. Take medications as prescribed. Return if symptoms worsen or any concerns for further evaluation. Drink plenty fluids and rest. Avoid elderly and infants. Print Language: SLOVENIAN - Post Discharge Activity Forms/Work/School Notes: Back to Work
[2017-10-26 15:59] LABS: URINE APPEARANCE CLEAR; URINE BILIRUBIN NEGATIVE (NEGATIVE); URINE BLOOD 2+ (NEGATIVE); URINE COLOR LTYELLOW; URINE GLUCOSE (UA) 1+ (NEGATIVE); URINE KETONE NEGATIVE (NEGATIVE); URINE LEUK ESTERASE NEGATIVE (NEGATIVE); URINE NITRITE NEGATIVE (NEGATIVE); URINE PROTEIN NEGATIVE (NEGATIVE); URINE UROBILINOGEN NEGATIVE mg/dL (0.2-1.0)
[2017-10-26 18:27] LABS: URINE LEUK ESTERASE Negative (NEGATIVE)
[2017-10-26 21:31] LABS: URINE BACTERIA RARE /hpf (NONE SEEN); URINE MUCUS RARE; URINE RBC 6 /hpf (0-3); URINE WBC 1 /hpf (3-5)
== END 2017-10-26 16:30 | disposition home or self-care (01) ==
LOC: JERFT 14:20
DX: J10.1 Influenza due to other identified influenza virus with other respiratory manifestations (principal)
CPT/HCPCS: 81003; 81015; 87804; 99281-25

== ENCOUNTER 2018-11-15 16:26 | Emergency (ER) | payer OTHER ==
--- NOTE | 2018-11-15 16:35 | PDOC ---
Rapid Medical Evaluation Time Seen by Provider: 11/15/18 16:34 Medical Evaluation: Allergies Allergy/AdvReac Type Severity Reaction Status Date / Time shrimp Allergy Severe Difficulty Verified 10/15/17 23:44 Breathing No Known Drug Allergies Allergy Verified 10/15/17 23:44 11/15/18 16:34 I have performed a brief in-person evaluation of this patient. The patient presents with a chief complaint of: 3 weeks of right thumb pain. Pertinent physical exam findings: Normal ROM. I have ordered the following: Uhcg, xray The patient will proceed to the ED for further evaluation. Discharge Disposition - Diagnosis Thumb pain Qualifiers: Laterality: right Qualified Code(s): M79.644 - Pain in right finger(s) - Referrals - Patient Instructions - Post Discharge Activity
[2018-11-15 16:38] VITALS: BP 103/56; PULSE 68; TEMP 98.4; BMI 26.5
--- NOTE | 2018-11-15 17:41 | PDOC ---
History of Present Illness - General Chief Complaint: Pain, Acute Stated Complaint: RT THUMB PAIN Time Seen by Provider: 11/15/18 16:34 History Source: Patient Exam Limitations: Clinical Condition - History of Present Illness Initial Comments: 11/15/18 18:20 Patient with no significant past medical history present with complaint of 3 weeks history of pain to distal aspect of right thumb. 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 She denies trauma or injury to thumb. Patient denies any wrist pain Timing/Duration: other (3 weeks) Past History - Past Medical History Allergies/Adverse Reactions: Allergies Allergy/AdvReac Type Severity Reaction Status Date / Time shrimp Allergy Severe Difficulty Verified 10/15/17 23:44 Breathing No Known Drug Allergies Allergy Verified 10/15/17 23:44 Home Medications: Ambulatory Orders Naproxen 500 mg PO BID PRN #20 tablet 11/15/18 Cardiac Disorders: Yes (H/O PALPITATIONS) COPD: No GI Disorders: Yes (H/O CONSTIPATION) - Immunization History Immunization Up to Date: Yes - Suicide/Smoking/Psychosocial Hx Smoking Status: No Smoking History: Never smoked Have you smoked in the past 12 months: No Number of Cigarettes Smoked Daily: 0 Information on smoking cessation initiated: No Hx Alcohol Use: No Drug/Substance Use Hx: No Substance Use Type: None Review of Systems - Review of Systems Able to Perform ROS?: Yes Is the patient limited Montserratian proficient: No Constitutional: No: Weakness HEENTM: No: Symptoms Reported Respiratory: No: Symptoms reported Cardiac (ROS): No: Symptoms Reported ABD/GI: No: Symptoms Reported, Nausea, Vomiting Musculoskeletal: Yes: Muscle Pain (right thumb pain) Neurological: No: Numbness, Paresthesia, Tingling *Physical Exam - Vital Signs Last Vital Signs Temp Pulse Resp BP Pulse Ox 98.4 F 68 16 103/56 L 99 11/15/18 16:34 11/15/18 16:34 11/15/18 16:34 11/15/18 16:34 11/15/18 16:34 - Physical Exam Comments: 11/15/18 18:22 GENERAL: Well developed, well nourished. Awake and alert. No acute distress. Patient is sitting in a chair and testing on her phone with her right thumb. CARDIOVASCULAR: Regular rate and rhythm. No murmurs, rubs, or gallops. PULMONARY: No evidence of respiratory distress. Lungs clear to auscultation bilaterally. No wheezing, rales or rhonchi. ABDOMINAL: Soft. Non-tender. Non-distended. No rebound or guarding. No organomegaly. Normoactive bowel sounds MUSCULOSKELETAL : mild tenderness over IP joint and proximal phalange of right thumb. 5 out of 5 strength to right thumb. Full range of motion to right thumb. Mild swelling to right thumb. No bony deformities SKIN: Warm and dry. Normal capillary refill. NEUROLOGICAL: Alert, awake, appropriate. No motor deficits in the lower extremities. Gait is normal without ataxia. PSYCHIATRIC: Cooperative. Good eye contact. Appropriate mood and affect. General Appearance: Yes: Nourished, Appropriately Dressed. No: Apparent Distress Moderate Sedation - Procedure Monitoring Vital Signs: Procedure Monitoring Vital Signs Temperature 98.4 F 11/15/18 16:34 Pulse Rate 68 11/15/18 16:34 Respiratory Rate 16 11/15/18 16:34 Blood Pressure 103/56 L 11/15/18 16:34 O2 Sat by Pulse Oximetry (%) 99 11/15/18 16:34 ED Treatment Course - ADDITIONAL ORDERS Additional order review: Laboratory Results 11/15/18 16:45 Urine HCG, Qual Negative Medical Decision Making - Medical Decision Making 11/15/18 18:23 Patient with no significant past medical history present with complaint of 3 weeks history of pain to distal aspect of right thumb. 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 She denies trauma or injury to thumb. Exam significant for ild tenderness over IP joint and proximal phalange of right thumb. 5 out of 5 strength to right thumb. Full range of motion to right thumb. Mild swelling to right thumb. No bony deformities . Patient texting on her phone with right thumb during visit 11/15/18 18:24 X-ray of right hand shows no acute fracture dislocation. X-ray of bone visible on lateral view of right hand over plantar aspect of the right wrist. Results discussed with patient. Patient symptoms likely thumb sprain. Patient is stable for discharge on NSAIDs with orthopedics follow-up. *DC/Admit/Observation/Transfer Diagnosis at time of Disposition: Strain of right thumb Thumb pain Qualifiers: Laterality: right Qualified Code(s): M79.644 - Pain in right finger(s) - Discharge Dispostion Disposition: HOME Condition at time of disposition: Stable Decision to Admit order: No - Prescriptions Prescriptions: Naproxen 500 mg PO BID PRN #20 tablet PRN Reason: pain - Referrals Referrals: Jacky Goel MD [Staff Physician] - - Patient Instructions Printed Discharge Instructions: Finger Sprain Additional Instructions: Your x-ray shows no fracture or dislocation. Symptoms likely from thumb strain. Take medication as prescribed. Follow-up referred orthopedics hand specialist for follow-up care. - Post Discharge Activity
== END 2018-11-15 17:47 | disposition home or self-care (01) ==
LOC: JERFT 16:26
DX: S63.621A Sprain of interphalangeal joint of right thumb, initial encounter (principal); X50.3XXA Overexertion from repetitive movements, initial encounter; X50.9XXA Other and unspecified overexertion or strenuous movements or postures, initial encounter; Y93.89 Activity, other specified; Y92.89 Other specified places as the place of occurrence of the external cause; Y99.0 Civilian activity done for income or pay
CPT/HCPCS: 73140-TC-RT-FY; 84703; 99281-25

== ENCOUNTER 2019-01-21 09:02 | Emergency (ER) | payer OTHER ==
[2019-01-21 09:12] VITALS: BP 104/55; PULSE 75; TEMP 98.1; BMI 27.6
--- NOTE | 2019-01-21 10:44 | PDOC ---
History of Present Illness - General Chief Complaint: Sore Throat Stated Complaint: SORE THROAT/EAR ACHE Time Seen by Provider: 01/21/19 10:18 History Source: Patient Exam Limitations: Clinical Condition - History of Present Illness Initial Comments: 01/21/19 10:41 Patient with no significant past medical history present with complaint of sore throat, dry cough, nasal congestion and right ear pain since yesterday. Patient denies any fever or chills or body aches. Denies any other symptoms Timing/Duration: 24 hours Past History - Past Medical History Allergies/Adverse Reactions: Allergies Allergy/AdvReac Type Severity Reaction Status Date / Time shrimp Allergy Severe Difficulty Verified 01/21/19 09:12 Breathing No Known Drug Allergies Allergy Verified 01/21/19 09:12 Home Medications: Ambulatory Orders Naproxen 500 mg PO BID PRN #20 tablet 11/15/18 Azithromycin [Zithromax Tri-Hiram (3 DAYS) -] 500 mg PO DAILY #3 tablet 01/21/19 Methylprednisolone [Medrol Dose Hiram] 4 mg PO ASDIR #21 tablet 01/21/19 Cardiac Disorders: Yes (H/O PALPITATIONS) COPD: No GI Disorders: Yes (H/O CONSTIPATION) - Immunization History Immunization Up to Date: Yes - Suicide/Smoking/Psychosocial Hx Smoking Status: No Smoking History: Never smoked Have you smoked in the past 12 months: No Number of Cigarettes Smoked Daily: 0 Hx Alcohol Use: No Drug/Substance Use Hx: No Substance Use Type: None Review of Systems - Review of Systems Able to Perform ROS?: Yes Is the patient limited Croatian proficient: No Constitutional: No: Chills, Fever, Weakness HEENTM: Yes: Symptoms Reported, See HPI, Ear Pain (right), Nose Congestion, Throat Pain. No: Eye Pain, Blurred Vision, Tearing, Recent change in vision, Double Vision, Cataracts, Ocular Prothesis, Ear Discharge, Nose Pain, Tinnitus, Nose Bleeding, Hearing Loss, Throat Swelling, Mouth Pain, Dental Problems, Difficulty Swallowing, Mouth Swelling, Other Respiratory: Yes: Symptoms reported, See HPI, Cough. No: Orthopnea, Shortness of Breath, SOB with Exertion, SOB at Rest, Stridor, Wheezing, Productive cough, Hemoptysis, Other Cardiac (ROS): No: Symptoms Reported, See HPI, Chest Pain, Edema, Irregular Heart Rate, Lightheadedness, Palpitations, Syncope, Chest Tightness, Other ABD/GI: No: Constipated, Diarrhea, Nausea, Vomiting, Abdominal cramping All Other Systems: Reviewed and Negative *Physical Exam - Vital Signs Last Vital Signs Temp Pulse Resp BP Pulse Ox 98.1 F 75 16 104/55 L 99 01/21/19 09:09 01/21/19 09:09 01/21/19 09:09 01/21/19 09:09 01/21/19 09:09 - Physical Exam Comments: 01/21/19 10:43 GENERAL: Well developed, well nourished. Awake and alert. No acute distress. HEENT: External ear canal. Normal tympanic membrane bilateral .Normocephalic, atraumatic. PERRLA, EOMI. No conjunctival pallor. Sclera are non-icteric. Moist mucous membranes. Oropharynx is clear. NECK: Supple. Full ROM. CARDIOVASCULAR: Regular rate and rhythm. No murmurs, rubs, or gallops. Distal pulses are 2+ and symmetric. PULMONARY: No evidence of respiratory distress. Lungs clear to auscultation bilaterally. No wheezing, rales or rhonchi. ABDOMINAL: Soft. Non-tender. Non-distended. No rebound or guarding. No organomegaly. Normoactive bowel sounds. MUSCULOSKELETAL Normal range of motion at all joints. SKIN: Warm and dry. Normal capillary refill. No rashes. No jaundice. NEUROLOGICAL: Alert, awake, appropriate. Gait is normal without ataxia. PSYCHIATRIC: Cooperative. Good eye contact. Appropriate mood 01/21/19 10:44 General Appearance: Yes: Nourished, Appropriately Dressed. No: Apparent Distress Medical Decision Making - Medical Decision Making 01/21/19 10:43 Patient with no significant past medical history present with complaint of 24- hour history of nonproductive cough, nasal congestion, sore throat and right ear pain without fevers. Clinical exam unremarkable lungs clear to auscultation .no erythema in ear canal and no pharyngeal erythema. Symptoms likely viral URI with pharyngitis versus strep pharyngitis. Rapid strep test ordered. 01/21/19 11:16 Rapid strep negative. Patient stable for outpatient management for URI with sinusitis and pharyngitis with ENT follow-up *DC/Admit/Observation/Transfer Diagnosis at time of Disposition: Otalgia of right ear Pharyngitis Qualifiers: Pharyngitis/tonsillitis etiology: unspecified etiology Qualified Code(s): J02.9 - Acute pharyngitis, unspecified URI (upper respiratory infection) Qualifiers: URI type: unspecified URI Qualified Code(s): J06.9 - Acute upper respiratory infection, unspecified - Discharge Dispostion Disposition: HOME Condition at time of disposition: Stable Decision to Admit order: No - Prescriptions Prescriptions: Azithromycin [Zithromax Tri-Hiram (3 DAYS) -] 500 mg PO DAILY #3 tablet Methylprednisolone [Medrol Dose Hiram] 4 mg PO ASDIR #21 tablet - Referrals Referrals: Clara Melara MD [Primary Care Provider] - Nico cJ MD [Staff Physician] - - Patient Instructions Printed Discharge Instructions: DI for Pharyngitis/Tonsillopharyngitis -- Adult Additional Instructions: Your rapid strep was negative. Take prescribed medication as prescribed. Increase fluid intake. Follow-up referred ENT if symptoms persist for more than 3 days. - Post Discharge Activity Forms/Work/School Notes: Back to Work
== END 2019-01-21 11:21 | disposition home or self-care (01) ==
LOC: JERFT 09:02
DX: J06.9 Acute upper respiratory infection, unspecified (principal); J02.9 Acute pharyngitis, unspecified; H92.01 Otalgia, right ear
CPT/HCPCS: 87070; 87880; 99281-25

== ENCOUNTER 2019-08-04 14:44 | Emergency (ER) | payer OTHER ==
[2019-08-04 15:06] VITALS: BP 110/53; PULSE 76; TEMP 98.6; BMI 28.3
[2019-08-04] MEDS ORDERED: KETOROLAC TROMETHAMINE 60 MG/2 ML VIAL IM ONE (15:19)
--- NOTE | 2019-08-04 15:25 | PDOC ---
History of Present Illness - General Chief Complaint: Back Pain Stated Complaint: BACK PAIN Time Seen by Provider: 08/04/19 15:07 History Source: Patient Exam Limitations: Clinical Condition - History of Present Illness Initial Comments: 08/04/19 15:20 Patient with no significant past medical history of present with mid back pain status post twisting her back while braiding her head this afternoon. Patient also reports a one-month history of urinary frequency by report drinks a lot of water. Patient also report intermittent hematuria for many weeks now which has been followed by her PCP which lab work was ordered but she never followed up. Denies fever, chills, nausea ,vomiting. Occurred: reports: this afternoon Past History - Past Medical History Allergies/Adverse Reactions: Allergies Allergy/AdvReac Type Severity Reaction Status Date / Time shrimp Allergy Severe Difficulty Verified 08/04/19 15:51 Breathing No Known Drug Allergies Allergy Verified 08/04/19 15:51 Home Medications: Ambulatory Orders Methocarbamol [Robaxin -] 500 mg PO BID PRN #14 tablet 08/04/19 Naproxen 500 mg PO BID PRN #20 tablet 08/04/19 Cardiac Disorders: Yes (H/O PALPITATIONS) COPD: No GI Disorders: Yes (H/O CONSTIPATION) - Immunization History Immunization Up to Date: Yes - Psycho Social/Smoking Cessation Hx Smoking Status: No Smoking History: Unknown if ever smoked Have you smoked in the past 12 months: No Number of Cigarettes Smoked Daily: 0 Information on smoking cessation initiated: No Hx Alcohol Use: No Drug/Substance Use Hx: No Substance Use Type: None Review of Systems - Review of Systems Able to Perform ROS?: Yes Is the patient limited Sinhala proficient: No Constitutional: No: Chills, Fever HEENTM: No: Symptoms Reported Respiratory: No: Symptoms reported Cardiac (ROS): No: Symptoms Reported ABD/GI: No: Nausea, Vomiting : Yes: Frequency, Hematuria (inter). No: Burning, Dysuria, Discharge, Flank Pain, Incontinence, Urgency Musculoskeletal: Yes: Symptoms Reported, See HPI, Back Pain (left side mid-back pain) Integumentary: No: Symptoms Reported All Other Systems: Reviewed and Negative *Physical Exam - Vital Signs Last Vital Signs Temp Pulse Resp BP Pulse Ox 98.6 F 76 16 110/53 L 100 08/04/19 15:04 08/04/19 15:04 08/04/19 15:04 08/04/19 15:04 08/04/19 15:04 - Physical Exam Comments: 08/04/19 15:25 GENERAL: Well developed, well nourished. Awake and alert in mild acute distress. CARDIOVASCULAR: Regular rate and rhythm. No murmurs, rubs, or gallops. PULMONARY: No evidence of respiratory distress. Lungs clear to auscultation bilaterally. No wheezing, rales or rhonchi. ABDOMINAL: Soft. Non-tender. Non-distended. No rebound or guarding. No organomegaly. Normoactive bowel sounds MUSCULOSKELETAL : mild tenderness over posterior paravertebral muscle of thoracic spine of T8-T10 on left sides. No bony deformities. No CVA tenderness SKIN: Warm and dry. Normal capillary refill. No rashes. No jaundice. NEUROLOGICAL: Alert, awake, appropriate. No motor deficits in the lower extremities. Gait is normal without ataxia. PSYCHIATRIC: Cooperative. Good eye contact. Appropriate mood and affect. General Appearance: Yes: Nourished, Appropriately Dressed. No: Apparent Distress Medical Decision Making - Medical Decision Making 08/04/19 15:28 Patient with no significant past medical history of present with mid back pain status post twisting her back while braiding her head this afternoon. Patient also reports a one-month history of urinary frequency by report drinks a lot of water. Patient also report intermittent hematuria for many weeks now which has been followed by her PCP which lab work was ordered but she never followed up. Denies fever, chills, nausea ,vomiting. Exam significant for mild tenderness to left paravertebral muscle lower thoracic spine of T8-T12 on the left side. No CVA tenderness. Symptoms likely back strain. UA, urine hCG and urine culture lab ordered. Toradol 60 mg IM ordered for pain. 08/04/19 16:59 UA shows trace hematuria but no leukocytosis. Patient stable for discharge on naproxen as needed for pain and Robaxin for muscle spasm with orthopedic spine follow-up. Referral given for urology for hematuria which has been going on for many weeks now according to patient. Patient stable for discharge Discharge - Discharge Information Problems reviewed: Yes Clinical Impression/Diagnosis: Muscle spasm, Urinary frequency Upper back strain Qualifiers: Encounter type: initial encounter Qualified Code(s): S29.012A - Strain of muscle and tendon of back wall of thorax, initial encounter Condition: Stable Disposition: HOME - Admission No - Additional Discharge Information Prescriptions: Methocarbamol [Robaxin -] 500 mg PO BID PRN #14 tablet PRN Reason: Back Pain Naproxen 500 mg PO BID PRN #20 tablet PRN Reason: Back Pain - Follow up/Referral Referrals: Bradley Seay MD, [facility] [Staff Physician] - Nico Jamil MD [Staff Physician] - - Patient Discharge Instructions Patient Printed Discharge Instructions: DI for Thoracic Back Pain Additional Instructions: Your urine have trace blood but no bacteria in urine. Follow-up with referred urologist Dr. Sandoval for blood in urine. Take prescribed medication as needed for pain. Apply hot compress to back as needed for pain. Follow-up with the referring senior accounts payable specialist if pain persist for more than 4 days. - Post Discharge Activity Work/Back to School Note: Back to Work
[2019-08-04] MEDS ORDERED: KETOROLAC TROMETHAMINE 60 MG/2 ML VIAL ONE (15:31)
[2019-08-04 15:49] LABS: URINE APPEARANCE Clear; URINE BILIRUBIN Negative (NEGATIVE); URINE COLOR Yellow; URINE GLUCOSE (UA) Negative (NEGATIVE); URINE KETONE Negative (NEGATIVE); URINE LEUK ESTERASE Negative (NEGATIVE); URINE NITRITE Negative (NEGATIVE); URINE PROTEIN Negative (NEGATIVE); URINE UROBILINOGEN 0.2 mg/dL (0.2-1.0)
[2019-08-04 15:59] LABS: URINE BACTERIA FEW /hpf (NEGATIVE); URINE WBC 0-5 /hpf (0-5)
== END 2019-08-04 16:39 | disposition home or self-care (01) ==
LOC: JERFT 14:44
PROC: 3E0233Z Introduction of Anti-inflammatory into Muscle, Percutaneous Approach (ICD-10-PCS; principal; 2019-08-04)
DX: S29.012A Strain of muscle and tendon of back wall of thorax, initial encounter (principal); M62.830 Muscle spasm of back; R35.0 Frequency of micturition; X50.1XXA Overexertion from prolonged static or awkward postures, initial encounter; Y93.89 Activity, other specified; Y92.038 Other place in apartment as the place of occurrence of the external cause; Y99.8 Other external cause status; Z91.013 Allergy to seafood
CPT/HCPCS: 81003; 84703; 87086; 96372; 99282-25

== ENCOUNTER 2019-10-03 16:16 | Emergency (ER) | payer OTHER ==
[2019-10-03 16:47] VITALS: BP 108/46; PULSE 71; TEMP 98.7; BMI 29.2
--- NOTE | 2019-10-03 17:41 | PDOC ---
History of Present Illness - General Chief Complaint: Sore Throat Stated Complaint: SORE THROAT Time Seen by Provider: 10/03/19 16:51 History Source: Patient Exam Limitations: No Limitations Past History - Past Medical History Allergies/Adverse Reactions: Allergies Allergy/AdvReac Type Severity Reaction Status Date / Time shrimp Allergy Severe Difficulty Verified 10/03/19 16:42 Breathing No Known Drug Allergies Allergy Verified 10/03/19 16:42 Home Medications: Ambulatory Orders Methocarbamol [Robaxin -] 500 mg PO BID PRN #14 tablet 08/04/19 Naproxen 500 mg PO BID PRN #20 tablet 08/04/19 Cardiac Disorders: Yes (H/O PALPITATIONS) COPD: No GI Disorders: Yes (H/O CONSTIPATION) - Immunization History Immunization Up to Date: Yes - Psycho Social/Smoking Cessation Hx Smoking Status: No Smoking History: Never smoked Have you smoked in the past 12 months: No Number of Cigarettes Smoked Daily: 0 Hx Alcohol Use: Yes Drug/Substance Use Hx: No Substance Use Type: None *Physical Exam - Vital Signs Last Vital Signs Temp Pulse Resp BP Pulse Ox 98.7 F 71 18 108/46 L 99 10/03/19 16:42 10/03/19 16:42 10/03/19 16:42 10/03/19 16:42 10/03/19 16:42 - Physical Exam General Appearance: No: Apparent Distress HEENT: positive: Normal ENT Inspection, TMs Normal, Nasal Congestion (mild). negative: Muffled/Hoarse voice, Pharyngeal Erythema, Tonsillar Exudate, Tonsillar Erythema, Rhinorrhea, Sinus Tenderness Neck: negative: Lymphadenopathy (R), Lymphadenopathy (L) Respiratory/Chest: positive: Lungs Clear, Normal Breath Sounds. negative: Respiratory Distress Cardiovascular: positive: Regular Rhythm, Regular Rate, S1, S2. negative: Murmur Integumentary: positive: Normal Color Neurologic: positive: Alert, Normal Mood/Affect Medical Decision Making - Medical Decision Making 39 y/o F with hx of asthma presents wth sore throat, congestion, rhinorrhea, B/ L ear pain and mild dry cough x 3 dayys. Has not tried any OTC medications yet. Denies fever, sob, cp, abd pain, n/v/d, other complaints Appears well Likely viral URI stable for dc 10/03/19 17:37 Discharge - Discharge Information Problems reviewed: Yes Clinical Impression/Diagnosis: Viral upper respiratory infection Condition: Stable Disposition: HOME - Admission No - Additional Discharge Information Prescription Drug Monitoring Program (I-STOP) results: I-STOP not reviewed - Follow up/Referral Referrals: Clara Melara MD [Primary Care Provider] - 2 Days - Patient Discharge Instructions Patient Printed Discharge Instructions: DI for Viral Upper Respiratory Infection -- Adult Additional Instructions: Thank you for choosing [facility]. It was a pleasure taking care of you. Recommend using Flonase nasal spray twice a day Nedi-pot and Sudafed can also help with congestion Follow-up with your doctor in 2 days Return to the Emergency Department if your symptoms worsen or persist or have other concerning symptoms. - Post Discharge Activity
== END 2019-10-03 17:52 | disposition home or self-care (01) ==
LOC: JERFT 16:16
DX: J06.9 Acute upper respiratory infection, unspecified (principal); Z91.013 Allergy to seafood; R00.2 Palpitations; K59.00 Constipation, unspecified
CPT/HCPCS: 99281-25

== ENCOUNTER 2020-09-17 19:16 | Emergency (ER) | payer OTHER ==
[2020-09-17 19:38] VITALS: BP 114/61; PULSE 77; TEMP 97.8; BMI 30.1
[2020-09-17] MEDS ORDERED: METOCLOPRAMIDE HCL INJECTION 10 MG/2 ML VIAL IVPUSH ONE (20:14)
[2020-09-17] MEDS ORDERED: KETOROLAC TROMETHAMINE 30 MG/1 ML VIAL IVPUSH ONE (20:14)
[2020-09-17] MEDS ORDERED: SODIUM CHLORIDE 1,000 ML IV STA (20:14)
[2020-09-17] MEDS ORDERED: METOCLOPRAMIDE HCL INJECTION 10 MG/2 ML VIAL ONE (20:34)
[2020-09-17] MEDS ORDERED: KETOROLAC TROMETHAMINE 30 MG/1 ML VIAL ONE (20:35)
== END 2020-09-17 22:38 | disposition home or self-care (01) ==
LOC: JER 19:16
PROC: 3E033GC Introduction of Other Therapeutic Substance into Peripheral Vein, Percutaneous Approach (ICD-10-PCS; principal; 2020-09-17)
PROC: 3E0333Z Introduction of Anti-inflammatory into Peripheral Vein, Percutaneous Approach (ICD-10-PCS; 2020-09-17)
PROC: 3E033GC Introduction of Other Therapeutic Substance into Peripheral Vein, Percutaneous Approach (ICD-10-PCS; 2020-09-17)
PROC: 3E0337Z Introduction of Electrolytic and Water Balance Substance into Peripheral Vein, Percutaneous Approach (ICD-10-PCS; 2020-09-17)
DX: G44.209 Tension-type headache, unspecified, not intractable (principal)
CPT/HCPCS: 99284-25

== ENCOUNTER 2020-10-02 23:05 | Emergency (ER) | payer OTHER ==
[2020-10-02 23:14] VITALS: BP 119/56; PULSE 75; TEMP 98; BMI 30.1
[2020-10-03] MEDS ORDERED: AMOX TR/POT CLAV 875MG/125MG TABLETS (FP) PO ONE (01:29)
[2020-10-03] MEDS ORDERED: AMOX TR/POT CLAV 875MG/125MG TABLETS (FP) ONE (01:31)
[2020-10-03] MEDS ORDERED: IBUPROFEN 600 MG TABLET (FP) PO ONE ×2 (01:53→01:54)
[2020-10-03 02:10] LABS: BASO % 0.4 % (0-2.0); EOS % 1.8 % (0-4.5); HEMATOCRIT 39.4 % (32.4-45.2); HEMOGLOBIN 13.1 GM/dL (10.7-15.3); LYMPH % 28.2 % (8-40); MCH 32.2 pg (25.7-33.7); MCHC 33.3 g/dl (32.0-36.0); MEAN CELL VOLUME 96.6 fl (80-96); MEAN PLT VOLUME 8.2 fl (7.5-11.1); MONO % 7.1 % (3.8-10.2); NEUT % 62.5 % (42.8-82.8); PLATELET COUNT 246 K/MM3 (134-434); RBC 4.08 M/mm3 (3.60-5.2); RDW 13.8 % (11.6-15.6); WHITE BLOOD COUNT 12.4 K/mm3 (4.0-10.0)
[2020-10-03 02:32] LABS: POTASSIUM 3.9 mmol/L (3.5-5.1)
[2020-10-03 02:34] LABS: BLOOD UREA NITROGEN 20.2 mg/dL (7-18); CALCIUM 8.9 mg/dL (8.5-10.1)
[2020-10-03 02:38] LABS: CREATININE 0.8 mg/dL (0.55-1.3)
== END 2020-10-03 02:05 | disposition home or self-care (01) ==
LOC: JER 23:05 → JERFT 23:05 → JER 10-03 02:05
DX: L08.9 Local infection of the skin and subcutaneous tissue, unspecified (principal)
CPT/HCPCS: 36415; 80048; 85025; 85651; 86140; 99284-25

== ENCOUNTER 2020-12-11 21:40 | Emergency (ER) | payer OTHER ==
[2020-12-11 21:48] VITALS: BP 109/58; PULSE 78; TEMP 97.8; BMI 30.1
[2020-12-11] MEDS ORDERED: diphenhydrAMINE HCL 25 MG CAPSULE (FP) PO ONE ×3 (23:13→23:20)
== END 2020-12-11 23:26 | disposition home or self-care (01) ==
LOC: JER 21:40
DX: T78.40XA Allergy, unspecified, initial encounter (principal)
CPT/HCPCS: 99283-25

== ENCOUNTER 2021-04-02 20:55 | Emergency (ER) | payer OTHER ==
[2021-04-02 21:05] VITALS: BP 92/56; PULSE 61; TEMP 98; BMI 30.1
== END 2021-04-02 22:03 | disposition home or self-care (01) ==
LOC: JER 20:55 → JERFT 20:55
DX: H92.01 Otalgia, right ear (principal)
CPT/HCPCS: 99282-25

== ENCOUNTER 2021-04-03 03:06 | Emergency (ER) | payer OTHER ==
[2021-04-03] MEDS ORDERED: diphenhydrAMINE HCL 25 MG CAPSULE (FP) PO ONE (03:16)
[2021-04-03] MEDS ORDERED: diphenhydrAMINE HCL 50 MG CAPSULE PO ONE (03:16)
[2021-04-03] MEDS ORDERED: FAMOTIDINE 20 MG/50 ML IVPB 20 MG/50 ML MG IVPB ONE ×2 (03:16)
[2021-04-03] MEDS ORDERED: methylPREDNISolone NA SUCC 125 MG/2 ML VIAL ONE (03:16)
[2021-04-03] MEDS ORDERED: methylPREDNISolone NA SUCC 125 MG/2 ML VIAL IVPUSH ONE (03:16)
[2021-04-03 03:24] VITALS: TEMP 98.5; BMI 29.1
[2021-04-03 06:14] VITALS: BP 102/50; PULSE 65
== END 2021-04-03 06:44 | disposition home or self-care (01) ==
LOC: JER 03:06
PROC: 3E033GC Introduction of Other Therapeutic Substance into Peripheral Vein, Percutaneous Approach (ICD-10-PCS; principal; 2021-04-03)
PROC: 3E033GC Introduction of Other Therapeutic Substance into Peripheral Vein, Percutaneous Approach (ICD-10-PCS; 2021-04-03)
DX: T78.40XA Allergy, unspecified, initial encounter (principal)
CPT/HCPCS: 99284-25